=== PATIENT | male | born 1995 | race Two or more races ===

== ENCOUNTER 2023-01-10 21:10 | Inpatient (IN) | payer OTHER ==
[~2023-01-10] VITALS: Ht 172.7 cm; Wt 73.0 kg
[2023-01-10 22:50] LABS: ANION GAP 7 mmol/L (8-16); CALCIUM, TOTAL 9.9 mg/dL (8.8-10.5); CARBON DIOXIDE 29 mmol/L (22-29); CHLORIDE 102 mmol/L (98-107); CREATININE 1.06 mg/dL (0.60-1.30); GLOMERULAR FILTR. RATE CALC > 60 mL/min (>60); GLUCOSE,RANDOM 101 mg/dL (70-110); POTASSIUM 3.6 mmol/L (3.5-5.1); SODIUM SERUM 138 mmol/L (136-145); UREA NITROGEN, BLOOD 13 mg/dL (7-18)
[2023-01-10 22:51] LABS: BASOPHILS % (AUTO) 0.3 % (0.0-2.0); EOSINOPHILS % (AUTO) 0.5 % (1.0-6.0); HEMATOCRIT 46.6 % (41-53); HEMOGLOBIN 15.3 g/dL (13.5-17.5); LYMPHOCYTES # (AUTO) 2.5 K/uL (1.0-4.8); LYMPHOCYTES % (AUTO) 34.3 % (22.0-44.0); MEAN CORPUSCULAR VOLUME 85 fL (80-100); MONOCYTES # (AUTO) 0.5 K/uL (0.1-1.0); MONOCYTES % (AUTO) 7.1 % (2.0-9.0); NEUTROPHILS # (AUTO) 4.2 K/uL (1.8-7.7); NEUTROPHILS % (AUTO) 57.8 % (40.0-70.0); PLATELET COUNT (AUTO) 241 K/uL (150-450); RED BLOOD CELL COUNT(AUTO) 5.48 MIL/uL (4.50-5.90); RED CELL DISTRIBUTION WIDTH 13.3 % (11.5-14.5)
[2023-01-10 22:54] LABS: COVID AG,FIA SOURCE NASOPHARYNGEAL
[2023-01-10 22:56] LABS: ALANINE AMINOTRANSFERASE 27 U/L (12-78); ALKALINE PHOSPHATASE 96 U/L (46-116); ASPARTATE AMINOTRANSFERASE 18 U/L (15-37); BILIRUBIN,TOTAL 0.6 mg/dL (0.1-1.0); TOTAL PROTEIN, SERUM 8.7 g/dL (6.4-8.2)
[2023-01-11] MEDS ORDERED: ACETAMINOPHEN 325 MG TABLET PO PRN (02:00)
[2023-01-11] MEDS ORDERED: ONDANSETRON HCL 4 MG/2 ML VIAL IVP PRN (02:00)
[2023-01-11 02:43] VITALS: BP 116/68
[2023-01-11 06:58] LABS: HEMATOCRIT 44.3 % (41-53); HEMOGLOBIN 14.9 g/dL (13.5-17.5)
[2023-01-11 08:49] VITALS: BP 128/62
[2023-01-11 10:17] LABS: AMPHET/METH SCREEN,URINE NEGATIVE (NEGATIVE); BARBITURATE SCREEN, URINE NEGATIVE (NEGATIVE); BENZODIAZEPINES SCREEN,URINE NEGATIVE (NEGATIVE); CANNABINOID SCREEN,URINE NEGATIVE (NEGATIVE); COCAINE SCREEN,URINE NEGATIVE (NEGATIVE); METHADONE SCREEN, URINE NEGATIVE (NEGATIVE); OPIATE SCREEN,URINE NEGATIVE (NEGATIVE); PHENCYCLIDINE SCREEN,URINE NEGATIVE (NEGATIVE)
[2023-01-11] MEDS: RisperiDONE 0.5 MG TABLET PO SCH ×2 (10:44→19:43)
[2023-01-11 11:10] LABS: HEMATOCRIT 46.1 % (41-53); HEMOGLOBIN 15.2 g/dL (13.5-17.5)
[2023-01-11 15:51] VITALS: BP 117/64
[2023-01-11 18:58] LABS: HEMATOCRIT 44.5 % (41-53); HEMOGLOBIN 14.6 g/dL (13.5-17.5)
[2023-01-11 19:57] VITALS: BP 114/64
[2023-01-11 23:14] LABS: HEMATOCRIT 44.3 % (41-53); HEMOGLOBIN 14.7 g/dL (13.5-17.5)
[2023-01-12 04:43] VITALS: BP 109/56
[2023-01-12] MEDS: HEPARIN SODIUM,PORCINE 5,000 UNITS/ML VIAL SQ SCH ×3 (07:52→23:19)
[2023-01-12] MEDS: RisperiDONE 0.5 MG TABLET PO SCH ×2 (07:52→19:51)
[2023-01-12 09:17] VITALS: BP 113/67
[2023-01-12 20:22] VITALS: BP 117/75
[2023-01-13 05:02] VITALS: BP 122/75
[2023-01-13 08:04] VITALS: BP 115/69
[2023-01-13] MEDS: HEPARIN SODIUM,PORCINE 5,000 UNITS/ML VIAL SQ SCH (08:54)
[2023-01-13] MEDS: RisperiDONE 0.5 MG TABLET PO SCH (08:54)
[2023-01-13] MEDS ORDERED: RISP0.5T61 PO (11:00)
[2023-01-13 16:57] VITALS: BP 121/74
== END 2023-01-13 18:06 | DRG 378 ==
LOC: EMS 21:16 → 6S 01-11 01:39
PROVIDERS: ADMIT Internal Medicine; ATTEND Internal Medicine
DX: K92.0 Hematemesis (principal); R45.851 Suicidal ideations; F29 Unspecified psychosis not due to a substance or known physiological condition; Z20.822 Contact with and (suspected) exposure to COVID-19; Z79.899 Other long term (current) drug therapy
CPT/HCPCS: 71045; 80053; 80307; 85014; 85018; 85025; 99285; G0480; J1644; 36415-L1; 36415-TC